=== PATIENT | male | born 1965 | race Caucasian/White ===

== ENCOUNTER 2019-10-12 00:06 | Inpatient (IN) | payer MEDICAID ==
[~2019-10-12] VITALS: Ht 180.3 cm; Wt 90.7 kg
[2019-10-12 00:06] VITALS: BP_SYST 144
--- NOTE | 2019-10-12 00:06 | NUR ---
Pt ambulatory to bed 1 for evaluation
--- NOTE | 2019-10-12 00:10 | NUR ---
Patient brought incompalining of left sided chest pain since yesterday AM. Patient reports heavy pressure and diaphoretic. Patient went to see PMD yesterday and reports had abdnormal EKG and was referred to see vp securities. Patient reports since then he has developed high blood pressure. Patient reports no medical history. Denies taking any medication. Patient reports taking over the counter supplements. Denies any chest pain at this time. No other complaints/injuries per patient or as noted. Will continue to monitor.
[2019-10-12] MEDS ORDERED: ASPIRIN 81 MG TAB.CHEW PO ONE (00:30)
--- NOTE | 2019-10-12 00:33 | NUR ---
# 20 gauge angiocath placed to LAC. Use of asceptic technique. Opsite placed over site. Blood return noted. Blood for lab drawn from site. Flushed with 10 cc of normal saline. No evidence of infiltration noted. Patient tolerated well.
[2019-10-12 00:53] LABS: BASOPHILS % (AUTO) 0.5 % (0.0-2.0); EOSINOPHILS # (AUTO) 0.3 K/uL (0.0-0.4); EOSINOPHILS % (AUTO) 4.1 % (0.0-4.0); HEMATOCRIT 43.8 % (36-54); HEMOGLOBIN 14.7 g/dL (14.0-18.0); LYMPHOCYTES # (AUTO) 2.1 K/uL (1.0-5.5); MEAN CORPUSCULAR HEMOGLOBIN 31 pg (27-31); MEAN CORPUSCULAR HGB CONC 34 % (32-36); MEAN CORPUSCULAR VOLUME 91 fL (79.0-98.0); MONOCYTES # (AUTO) 0.6 K/uL (0.0-1.0); MONOCYTES % (AUTO) 8.1 % (1.7-9.3); NEUTROPHILS # (AUTO) 3.9 K/uL (1.8-7.7); NEUTROPHILS % (AUTO) 56.3 % (40.0-70.0); PLATELET COUNT (AUTO) 158 K/uL (130-430); RED CELL DISTRIBUTION WIDTH 13.3 % (9.0-15.0); WHITE BLOOD COUNT (AUTO) 6.8 K/uL (4.8-10.8)
[2019-10-12 01:06] LABS: CALCIUM 8.8 mg/dL (8.4-11.0); CREATININE 1.52 mg/dL (0.55-1.30); POTASSIUM 3.9 mmol/L (3.5-5.1)
[2019-10-12 01:10] LABS: PROTHROMBIN TIME 10.1 SECS (9.5-12.5)
[2019-10-12 01:11] LABS: ALBUMIN 3.8 g/dL (3.4-4.8); TOTAL BILIRUBIN 0.7 mg/dL (0.0-1.0)
--- NOTE | 2019-10-12 01:25 | NUR ---
ER Dr. Bowman at bedside examining patient.
--- NOTE | 2019-10-12 01:33 | NUR ---
Patient states he does not take any medications
--- NOTE | 2019-10-12 01:34 | NUR ---
Patient is a full code
[2019-10-12 01:38] LABS: BILIRUBIN,URINE NEGATIVE (NEGATIVE); BLOOD, URINE NEGATIVE (NEGATIVE); CLARITY/URINE CLEAR (CLEAR); COLOR,URINE YELLOW (YELLOW); GLUCOSE,URINE NEGATIVE (NEGATIVE); KETONES,URINE NEGATIVE (NEGATIVE); LEUKOCYTE ESTERASE ,URINE NEGATIVE (NEGATIVE); NITRITE, URINE NEGATIVE (NEGATIVE); PH,URINE 5.5 (5.0-8.0); PROTEIN URINE NEGATIVE (NEGATIVE); UROBILINOGEN,URINE 0.2 (0.2-1.0)
[2019-10-12 01:43] LABS: CKMB RELATIVE INDEX 0.5 (0.0-2.9); CREATINE KINASE MB 2.1 ng/mL (0-3.6)
[2019-10-12] MEDS ORDERED: hydrALAZINE HCL 20 MG/ML VIAL IVP ONE (01:45)
[2019-10-12] MEDS ORDERED: NACL 0.9% 1,000 ML IV ONE (01:45)
--- NOTE | 2019-10-12 01:59 | NUR ---
medicated per md orders. Patient tolerated well.
--- NOTE | 2019-10-12 03:10 | NUR ---
Pt report received. Pt AAOx4, denies c/o C/P or SOB, no needs verbalized at this time. NS infusing without difficulty to patent and secure PIV LAC.
--- NOTE | 2019-10-12 03:10 | NUR ---
report given to JUAN DIEGO Damon
--- NOTE | 2019-10-12 04:30 | NUR ---
Pt up to restroom with steady gait, returns to bed. Denies c/o pain or discomfort. No needs verbalized. B/P 136/93, P 62. Dr. Bowman notified of V/S, no new orders.
--- NOTE | 2019-10-12 05:58 | NUR ---
Patient will be admitted to care of Dr. Resendez. Admitted to Tele unit. Will go to room 119B. Belongings list completed. Complete and up to date summary report printed. Phone report called to JUAN DIEGO Hubbard. Pt transported by manager of housekeeping and EMT via stretcher in stable condition.
--- NOTE | 2019-10-12 06:05 | NUR ---
ADMISSION NOTE Received patient from ER via essie, received report from JUAN DIEGO RODRIGUEZ. Patient admitted with diagnosis of CHEST PAIN. Patient oriented to hospital routine, call light, toileting and safety-patient verbalized understanding.
[2019-10-12 06:10] VITALS: BP_SYST 147
--- NOTE | 2019-10-12 06:40 | NUR ---
CONSULT CARDIOLOGY CHEST PAIN DR RICH [phone] S/W ODAL[facility] EXCHANGE
--- NOTE | 2019-10-12 06:45 | NUR ---
Contraband: Patient in possession of black pocket knife/multi-tool. Item placed in bag with patient label and sent to security to hold for duration of patient's stay at hospital. Informed patient that item will be returned to him upon discharge.
--- NOTE | 2019-10-12 06:57 | NUR ---
Initial RN notes Pt AAOx4, VSS, afebrile. No c/o pain or distress. IVF infusing at ordered rate L. AC 20G good blood return. Oriented to call light use. Bed low, locked, siderails up x 2. To endorse to AM nurse.
--- NOTE | 2019-10-12 07:30 | NUR ---
OPENING NOTES: RECEIVED PATIENT FROM BLACKSMITH APPRENTICE NURSE. PATIENT IS AWAKE AND ALERT x4 LAYING DOWN IN BED. PATIENT DENIES ANY PAIN AT THE MOMENT. PATIENT IS TOLERATING OXYGEN AT ROOM AIR WITH NO SIGNS OF DISTRESS OR SHORTNESS OF BREATH NOTED. IV SITE IS PATENT WITH NO SIGNS OF INFILTRATION NOTED. PATIENT IN STABLE CONDITION. SAFETY, FALL AND ASPIRATION PRECAUTIONS ARE IN PLACE. BED LOCKED IN LOWEST POSITION WITH CALL LIGHT IN REACH. WILL CONTINUE TO MONITOR PATIENT FOR ANY CHANGES.
[2019-10-12 08:00] VITALS: BP_SYST 155
[2019-10-12] MEDS ORDERED: LOSARTAN POTASSIUM 50 MG TABLET (COZAAR) PO SCH (09:00)
--- NOTE | 2019-10-12 10:10 | NUR ---
RN ROUNDS: PATIENT IS ASLEEP LAYING DOWN IN BED. NO SIGNS OF DISTRESS OR SHORTNESS OF BREATH NOTED PATIENT IN STABLE CONDITION. WILL CONTINUE TO MONITOR PATIENT FOR ANY CHANGES.
[2019-10-12 12:04] VITALS: BP_SYST 140
--- NOTE | 2019-10-12 12:05 | NUR ---
RN ROUNDS: PATIENT IS ASLEEP LAYING DOWN IN BED. NO SIGNS OF DISTRESS OR SHORTNESS OF BREATH NOTED. PATIENT IN STABLE CONDITION. WILL CONTINUE TO MONITOR PATIENT FOR ANY CHANGES.
--- NOTE | 2019-10-12 12:29 | NUR ---
DC PLANNING CHART REVIEWED, A&O X4, PATIENT LIVES WITH SPOSUE AT [address] [place] [address]. ADLS- INDEPENDENT, DME- NONE, DCP- HOME WITH FAMILY, TRANSPORTATION- VIA SELF CAR VS FAMILY'S CAR. CONTINUE FOLLOW UP WITH DCP NEEDED JCC RN CM
--- NOTE | 2019-10-12 14:06 | NUR ---
RN ROUNDS: PATIENT IS AWAKE AND ALERT x4 LAYING DOWN IN BED. PATIENT DENIES ANY PAIN AT THE MOMENT. PATIENT STATES HE IS READY TO GO HOME. NO SIGNS OF DISTRESS OR SHORTNESS OF BREATH NOTED. PATIENT IN STABLE CONDITION. WILL CONTINUE TO MONITOR PATIENT FOR ANY CHANGES.
--- NOTE | 2019-10-12 16:40 | NUR ---
RN ROUNDS: PATIENT IS AWAKE AND ALERT x4 SITTING AT THE SIDE OF THE BED. PATIENT DENIES ANY PAIN AT THE MOMENT. NO SIGNS OF DISTRESS OR SHORTNESS OF BREATH NOTED. PATIENT IN STABLE CONDITION. WILL CONTINUE TO MONITOR PATIENT FOR ANY CHANGES.
--- NOTE | 2019-10-12 18:56 | NUR ---
CLOSING NOTES: PATIENT IS AWAKE AND ALERT x4 LAYING DOWN IN BED. PATIENT DENIES ANY PAIN AT THE MOMENT. PATIENT IS TOLERATING OXYGEN AT ROOM AIR WITH NO SIGNS OF DISTRESS OR SHORTNESS OF BREATH NOTED. IV SITE IS PATENT WITH NO SIGNS OF INFILTRATION NOTED. PATIENT IN STABLE CONDITION. SAFETY, FALL AND ASPIRATION PRECAUTIONS REMAINED IN PLACE THROUGHOUT THE SHIFT. BED LOCKED IN LOWEST POSITION WITH CALL LIGHT IN REACH. WILL ENDORSE PATIENT CARE TO ONCOMING COMPUTER EDUCATION PROFESSOR NURSE.
--- NOTE | 2019-10-12 19:20 | NUR ---
MD CALLED: SPOKE TO DR. FERGUSON REGARDING PATIENT WANTING TO GO HOME. DR. FERGUSON STATED SHE WILL NOT DISCHARGE ANYONE WHO DOESN'T ALREADY HAVE AN ORDER. MD AWARE OF PATIENT'S CONDITION. NO NEW ORDERS GIVEN.
--- NOTE | 2019-10-12 19:52 | NUR ---
Paged Dr. Resendez for DC order. Awaiting callback.
[2019-10-12 20:10] VITALS: BP_SYST 130
--- NOTE | 2019-10-12 20:30 | NUR ---
Chaitanya PADILLA 2nd time Paged Dr. Resendez and received call back and received order for discharge and to inform Dr. Thomas.
--- NOTE | 2019-10-12 20:43 | NUR ---
Paged Dr. Thomas Paged Dr. Thomas, Dr. Negron epic application coordinator. Informed MD golden for discharge per Dr. Resendez. Trop x3 are negative.
--- NOTE | 2019-10-12 21:20 | NUR ---
DISCHARGE HOME Pt d/c'd home. VSS. No c/o pain. Exit care provided. IV Dc'd catheter tip intact, no active bleeding. ID band removed, monitor box removed. All belongings returned to pt including pocket knife.
== END 2019-10-12 21:20 | disposition home or self-care (01) | DRG 243 ==
LOC: SED 00:06 → STU 04:55
PROVIDERS: ADMIT Internal Medicine Hospice and Palliative Medicine; ATTEND Internal Medicine Hospice and Palliative Medicine
DX: K21.9 Gastro-esophageal reflux disease without esophagitis (principal); N17.0 Acute kidney failure with tubular necrosis; I10 Essential (primary) hypertension; N28.9 Disorder of kidney and ureter, unspecified; Z82.49 Family history of ischemic heart disease and other diseases of the circulatory system; Z83.3 Family history of diabetes mellitus; Z83.6 Family history of other diseases of the respiratory system
CPT/HCPCS: 36415; 71045; 80053; 81003; 82550-TC; 82553-TC; 83880; 84484; 85025; 85379; 85610-TC; 93005; 93306; 96374; 99285; G0378; J0360; J7030

== ENCOUNTER 2020-01-03 19:05 | Emergency (ER) | payer MEDICAID ==
[~2020-01-03] VITALS: Ht 180.3 cm; Wt 90.7 kg
[2020-01-03 19:29] VITALS: BP_SYST 145
--- NOTE | 2020-01-03 19:29 | NUR ---
Placed in room 7 . Placed on steak sauce maker, blood pressure machine and pulse oximeter. To gown for exam. Side rails up. Report given to JUAN DIEGO MAYNARD.
--- NOTE | 2020-01-03 19:45 | NUR ---
DR HAM IN TO ASSESS
[2020-01-03] MEDS ORDERED: hydrALAZINE HCL 20 MG/ML VIAL IVP ONE ×2 (20:00→20:30)
[2020-01-03] MEDS ORDERED: NS 500 ML IV ONE (20:00)
--- NOTE | 2020-01-03 20:05 | NUR ---
SASHA TO ASSUME CARE, PT CALM, ALERT, RESP UNLABORED. COMMUNICATES CLEARLY IN FULL COMPLETE SENTENCES.C/O HTN, DIZZINESS. NOT TOLERATING FLUIDS WELL. SKIN WARM AND DRY.
[2020-01-03 20:19] LABS: BASOPHILS % (AUTO) 0.5 % (0.0-2.0); EOSINOPHILS # (AUTO) 0.3 K/uL (0.0-0.4); EOSINOPHILS % (AUTO) 2.9 % (0.0-4.0); HEMATOCRIT 44.6 % (36-54); HEMOGLOBIN 15.4 g/dL (14.0-18.0); LYMPHOCYTES # (AUTO) 2.5 K/uL (1.0-5.5); LYMPHOCYTES % (AUTO) 27.5 % (20.5-51.5); MEAN CORPUSCULAR HEMOGLOBIN 31 pg (27-31); MEAN CORPUSCULAR HGB CONC 34 % (32-36); MEAN CORPUSCULAR VOLUME 91 fL (79.0-98.0); MONOCYTES # (AUTO) 0.7 K/uL (0.0-1.0); MONOCYTES % (AUTO) 7.7 % (1.7-9.3); NEUTROPHILS # (AUTO) 5.6 K/uL (1.8-7.7); NEUTROPHILS % (AUTO) 61.4 % (40.0-70.0); PLATELET COUNT (AUTO) 162 K/uL (130-430); RED CELL DISTRIBUTION WIDTH 12.9 % (9.0-15.0); WHITE BLOOD COUNT (AUTO) 9.2 K/uL (4.8-10.8)
[2020-01-03 20:24] LABS: CALCIUM 8.8 mg/dL (8.4-11.0); CREATININE 1.18 mg/dL (0.55-1.30); POTASSIUM 3.6 mmol/L (3.5-5.1)
[2020-01-03 20:29] LABS: ALBUMIN 3.6 g/dL (3.4-4.8); TOTAL BILIRUBIN 0.7 mg/dL (0.0-1.0)
--- NOTE | 2020-01-03 20:29 | NUR ---
TO CT VIA [facility]
--- NOTE | 2020-01-03 20:55 | NUR ---
DR HAM IN TO ASSESS. PT CALM, ALERT, AMBULATED GUARDED GAIT AT BEDSIDE. NO DISTRESS. MEDICATED FOR NAUSEA
[2020-01-03] MEDS ORDERED: MORPHINE 2 MG/ML INJ. SYRINGE IVP ONE (21:00)
[2020-01-03] MEDS ORDERED: ONDANSETRON HCL 4 MG/2 ML VIAL IVP ONE (21:00)
[2020-01-03] MEDS ORDERED: ONDANSETRON HCL 4 MG/2 ML VIAL ONE (21:13)
[2020-01-03] MEDS ORDERED: PROCHLORPERAZINE EDISYLATE 10 MG/2 ML VIAL IVP ONE (21:45)
[2020-01-03] MEDS ORDERED: PROCHLORPERAZINE EDISYLATE 10 MG/2 ML VIAL ONE (21:52)
--- NOTE | 2020-01-03 22:47 | NUR ---
OFF UNIT STEADY. FOLLOW UP APPOINTMENT WITH PMD TOMORROW AT 4PM
--- NOTE | 2020-01-03 22:49 | NUR ---
Patient given written and verbal discharge instructions and verbalizes understanding. ER MD discussed with patient the results and treatment provided. Patient in stable condition. ID arm band removed. IV catheter removed intact and dressing applied, no active bleeding. Rx given. Patient educated on pain management and to follow up with PMD. Opportunity for questions provided and answered. Medication side effect fact sheet provided.
[2020-01-03 22:51] VITALS: BP_SYST 126
== END 2020-01-03 22:51 | disposition home or self-care (01) ==
LOC: SED 19:05
DX: I10 Essential (primary) hypertension (principal); R51 Headache; H93.19 Tinnitus, unspecified ear; R42 Dizziness and giddiness; R11.2 Nausea with vomiting, unspecified
CPT/HCPCS: 36415; 70450; 80053; 85025; 93005; 96361; 96374; 96375; 96376; 99285; J0360; J0780; J2405; J7040